=== PATIENT | female | born 1960 | race Caucasian/White ===

== ENCOUNTER 2017-10-18 09:16 | Emergency (ER) | payer OTHER ==
[~2017-10-18] VITALS: Ht 167.6 cm; Wt 89.8 kg
[2017-10-18] MEDS ORDERED: FAMOTIDINE 20 MG/2 ML VIAL IVP ONE (10:15)
[2017-10-18] MEDS ORDERED: ONDANSETRON PF 4 MG/2 ML VIAL. IV ONE (10:15)
[2017-10-18] MEDS ORDERED: KETOROLAC 30 MG/ML INJ. IV ONE (10:15)
[2017-10-18] MEDS ORDERED: IV NORMAL SALINE 1000ML BAG 1,000 ML IV ONE (10:15)
[2017-10-18 10:43] LABS: BASO % 0 % (0-3); EOS % 0 % (0-3); HEMATOCRIT 41.3 % (36.0-47.0); HEMOGLOBIN 14.2 g/dL (12.0-15.5); LYMPH # 0.5 x10^3/uL (1.0-4.8); LYMPH % 3 % (24-48); MEAN CORPUSCULAR HEMOGLOBIN 30 pg (25-35); MEAN CORPUSCULAR HGB CONC 34 g/dL (31-37); MEAN CORPUSCULAR VOLUME 86 fL (79-100); MONO % 6 % (0-9); NEUT % 90 % (31-73); PLATELET COUNT 125 x10^3/uL (140-400); RED CELL DISTRIBUTION WIDTH 13.9 % (11.5-14.5); WHITE BLOOD COUNT 15.9 x10^3/uL (4.0-11.0)
[2017-10-18 10:55] LABS: CALCIUM 9.3 mg/dL (8.5-10.1); GFR 25.8
[2017-10-18 11:00] LABS: BILIRUBIN,URINE NEGATIVE (NEG); GLUCOSE,URINE NEGATIVE (NEG); NITRITE,URINE NEGATIVE (NEG); PROTEIN,URINE >=300 mg/dL (NEG-TRACE); UROBILINOGEN,URINE 0.2 mg/dL (0.2 mg/dL)
[2017-10-18 11:01] LABS: ALBUMIN 3.4 g/dL (3.4-5.0); ALBUMIN/GLOBULIN RATIO 0.9 (1.0-1.7); TOTAL BILIRUBIN 1.1 mg/dL (0.2-1.0); TOTAL PROTEIN 7.4 g/dL (6.4-8.2)
[2017-10-18 11:07] LABS: BACTERIA,URINE MANY /HPF (0-FEW); SQUAMOUS EPITHELIAL CELL,UR FEW /LPF; WBC,URINE TNTC /HPF (0-4)
--- NOTE | 2017-10-18 12:01 | RAD ---
CT abdomen and pelvis without contrast 10/18/2017 Clinical indication: Nausea, vomiting, diarrhea and flank pain. Comparison: None. Technique: Multiple CT images of the abdomen and pelvis were obtained without contrast. PQRS Compliance Statement: One or more of the following individualized dose reduction techniques were utilized for this examination: 1. Automated exposure control 2. Adjustment of the mA and/or kV according to patient size 3. Use of iterative reconstruction technique Findings: Examination is limited due to lack of intravenous and oral contrast. Heart size is normal. Patchy consolidation in the right lung base and trace right pleural effusion. There is severe hepatic steatosis. There is mild splenomegaly. Sludge in a nondilated gallbladder is noted. Unenhanced contours of the adrenal gland and pancreas are grossly unremarkable. There is a 5 mm nonobstructive calculus at the right UVJ seen on series 2/image 208. There is upstream right perinephric and periureteral stranding without hydronephrosis. There is a dense 1.5 cm cortical calcification at the interpolar left kidney which may represent a nonobstructive calculus or a dystrophic calcification. No left hydronephrosis. Abdominal aorta is normal in caliber with moderate aortoiliac calcified atheromatous disease. Small and large bowel loops are normal in caliber without obstruction. No abdominal free fluid. No pneumoperitoneum. No pelvic free fluid. Mildly distended and unopacified urinary bladder is unremarkable apart from the previously noted right UVJ calculus. There are no destructive osseous lesions. Impression: 1. 5 mm nonobstructive calculus at the right UVJ. 2. Right perinephric and periureteral stranding which may be reactive to stone, however ascending infection cannot be excluded. 3. 1.5 cm interpolar left renal dystrophic calcification or nonobstructive calculus. 4. Patchy opacities in the right lung base may represent aspiration, pneumonitis or pneumonia. 5. Trace right pleural effusion.
--- NOTE | 2017-10-18 12:43 | PHYS DOC ---
Past Medical History Past Medical History: Asthma, Hypertension Past Surgical History: Appendectomy, , Other Additional Past Surgical Histo: LEFT KIDNEY, RT KNEE Alcohol Use: None Drug Use: None Adult General Chief Complaint Chief Complaint: NAUSEA/VOMITING/DIARRHA HPI HPI Patient is a 56 year old female with history of asthma, hypertension, kidney stones, who presents today complaining of moderate right flank pain with nausea vomiting and slight diarrhea that has been going on intermittently for 4 days. Patient denies any fever. Denies any hematemesis or melena. She states she had a kidney stone in August and does not smoke if she passed it or not but it was 0.3 mm. Patient denies any hematuria. Denies any urgency frequency or dysuria. She has been taking Flomax, Zofran, and took one hydrocodone. Review of Systems Review of Systems Constitutional: Denies fever or chills [] Eyes: Denies change in visual acuity, redness, or eye pain [] HENT: Denies nasal congestion or sore throat [] Respiratory: Denies cough or shortness of breath [] Cardiovascular: No additional information not addressed in HPI [] GI: Reports nausea vomiting and diarrhea. Denies abdominal pain, : Reports right flank pain. Denies dysuria or hematuria [] Musculoskeletal: Denies back pain or joint pain [] Integument: Denies rash or skin lesions [] Neurologic: Denies headache, focal weakness or sensory changes [] All other systems were reviewed and found to be within normal limits, except as documented in this note. Current Medications Current Medications Current Medications Medications (Trade) Dose Ordered Sig/Grace Start Time Stop Time Status Last Admin Dose Admin Ceftriaxone Sodium 50 ml @ 100 mls/hr 1X ONCE 10/18/17 11:30 10/18/17 11:59 DC 10/18/17 12:34 100 MLS/HR Famotidine (Pepcid Vial) 20 mg 1X ONCE 10/18/17 10:15 10/18/17 10:17 DC 10/18/17 10:41 20 MG Fentanyl Citrate (Fentanyl 2ml Vial) 50 mcg 1X ONCE 10/18/17 12:45 10/18/17 12:46 DC 10/18/17 12:41 50 MCG Ketorolac Tromethamine (Toradol) 30 mg 1X ONCE 10/18/17 10:15 10/18/17 10:17 DC 10/18/17 10:40 30 MG Ondansetron HCl (Zofran) 4 mg 1X ONCE 10/18/17 10:15 10/18/17 10:17 DC 10/18/17 10:38 4 MG Sodium Chloride 1,000 ml @ 1,000 mls/hr 1X ONCE 10/18/17 10:15 10/18/17 11:14 DC 10/18/17 10:37 1,000 MLS/HR Tamsulosin HCl (Flomax) 0.4 mg 1X ONCE 10/18/17 12:45 10/18/17 12:46 DC 10/18/17 12:39 0.4 MG Allergies Allergies Allergies Coded Allergies Type Severity Reaction Last Updated Verified No Known Drug Allergies 10/18/17 No Physical Exam Physical Exam Constitutional: Well developed, well nourished, no acute distress, non-toxic appearance. [] HENT: Normocephalic, atraumatic, bilateral external ears normal, oropharynx moist, no oral exudates, nose normal. [] Eyes: PERRLA, EOMI, conjunctiva normal, no discharge. [] Neck: Normal range of motion, no tenderness, supple, no stridor. [] Cardiovascular:Heart rate regular rhythm, no murmur [] Lungs & Thorax: Bilateral breath sounds clear to auscultation [] Abdomen: Bowel sounds normal, soft, no tenderness, no masses, no pulsatile masses. [] Skin: Warm, dry, no erythema, no rash. [] Back: No tenderness, slight right CVA tenderness. [] Extremities: No tenderness, no cyanosis, no clubbing, ROM intact, no edema. [] Neurologic: Alert and oriented X 3, normal motor function, normal sensory function, no focal deficits noted. [] Psychologic: Affect normal, judgement normal, mood normal. [] Current Patient Data Vital Signs Vital Signs Date Time Temp Pulse Resp B/P (MAP) Pulse Ox O2 Delivery O2 Flow Rate FiO2 10/18/17 12:41 14 95 Room Air 10/18/17 10:10 98.0 112 120/61 (80) 98.0 Lab Values Laboratory Tests Test 10/18/17 10:30 10/18/17 10:50 White Blood Count 15.9 x10^3/uL (4.0-11.0) H Red Blood Count 4.80 x10^6/uL (3.50-5.40) Hemoglobin 14.2 g/dL (12.0-15.5) Hematocrit 41.3 % (36.0-47.0) Mean Corpuscular Volume 86 fL (79-100) Mean Corpuscular Hemoglobin 30 pg (25-35) Mean Corpuscular Hemoglobin Concent 34 g/dL (31-37) Red Cell Distribution Width 13.9 % (11.5-14.5) Platelet Count 125 x10^3/uL (140-400) L Neutrophils (%) (Auto) 90 % (31-73) H Lymphocytes (%) (Auto) 3 % (24-48) L Monocytes (%) (Auto) 6 % (0-9) Eosinophils (%) (Auto) 0 % (0-3) Basophils (%) (Auto) 0 % (0-3) Neutrophils # (Auto) 14.4 x10^3uL (1.8-7.7) H Lymphocytes # (Auto) 0.5 x10^3/uL (1.0-4.8) L Monocytes # (Auto) 0.9 x10^3/uL (0.0-1.1) Eosinophils # (Auto) 0.0 x10^3/uL (0.0-0.7) Basophils # (Auto) 0.0 x10^3/uL (0.0-0.2) Segmented Neutrophils % 74 % (35-66) H Band Neutrophils % 20 % (0-9) H Lymphocytes % 3 % (24-48) L Monocytes % 3 % (0-10) Platelet Estimate Decreased (ADEQUATE) Sodium Level 137 mmol/L (136-145) Potassium Level 4.0 mmol/L (3.5-5.1) Chloride Level 98 mmol/L (98-107) Carbon Dioxide Level 30 mmol/L (21-32) Anion Gap 9 (6-14) Blood Urea Nitrogen 24 mg/dL (7-20) H Creatinine 2.0 mg/dL (0.6-1.0) H Estimated GFR (Cockcroft-Gault) 25.8 BUN/Creatinine Ratio 12 (6-20) Glucose Level 127 mg/dL (70-99) H Calcium Level 9.3 mg/dL (8.5-10.1) Total Bilirubin 1.1 mg/dL (0.2-1.0) H Aspartate Amino Transferase (AST) 23 U/L (15-37) Alanine Aminotransferase (ALT) 38 U/L (14-59) Alkaline Phosphatase 73 U/L (46-116) Total Protein 7.4 g/dL (6.4-8.2) Albumin 3.4 g/dL (3.4-5.0) Albumin/Globulin Ratio 0.9 (1.0-1.7) L Lipase 47 U/L (73-393) L Urine Collection Type Unknown Urine Color Yellow Urine Clarity Cloudy Urine pH 6.0 Urine Specific [place] 1.015 Urine Protein >=300 mg/dL (NEG-TRACE) Urine Glucose (UA) Negative mg/dL (NEG) Urine Ketones (Stick) Negative mg/dL (NEG) Urine Blood Large (NEG) Urine Nitrite Negative (NEG) Urine Bilirubin Negative (NEG) Urine Urobilinogen Dipstick 0.2 mg/dL (0.2 mg/dL) Urine Leukocyte Esterase Moderate (NEG) Urine RBC 11-20 /HPF (0-2) Urine WBC Tntc /HPF (0-4) Urine Squamous Epithelial Cells Few /LPF Urine Bacteria Many /HPF (0-FEW) Urine Mucus Slight /LPF Laboratory Tests 10/18/17 10:30 Laboratory Tests 10/18/17 10:30 EKG EKG [] Radiology/Procedures Radiology/Procedures [] Course & Med Decision Making Course & Med Decision Making Pertinent Labs and Imaging studies reviewed. (See chart for details) This is a 56-year-old female patient presenting to the ED today with a right flank pain nausea vomiting and slight diarrhea for the last 4 days. CBC with a WBC of 15.9 and a left shift. CMP with creatinine of 2.0 and BUN of 24. Urine positive for moderate amount of leukocytes and large amount of blood. CT of the abdomen and pelvic was noted for 5.0 mm nonobstructive calculus at the right UVJ. Patient was also noted for right perinephric take them. Uterus stranding which may be reactive to the stone however they could not exclude infection. Patient's pain is well-controlled in the ED. She has been given IV fluids, Flomax and Rocephin Zofran and pain medications. Spoke to patient about her results. She is states her pain is well controlled and she would like to be discharged. She is tolerating fluids in the ED. She actually wanted lunch. Informed her I will call [facility] and talked with their urologist. I spoke with Dr. Lugo urologist at [facility]. He stated patient can be discharged on antibiotic Cipro Flomax and pain medication and follow-up with his office as long as she does not have a fever. Patient is afebrile. Patient was provided proper return precautions and discharged in stable condition. Dragon Disclaimer Dragon Disclaimer This electronic medical record was generated, in whole or in part, using a voice recognition dictation system. Departure Departure Impression: Primary Impression: Pyelonephritis Additional Impressions: Renal calculus Renal failure Disposition: HOME, SELF-CARE Condition: STABLE Referrals: NON,STAFF (PCP) Urologist Dr. Gallego [phone] Patient Instructions: Kidney Stones, Pyelonephritis, Adult, [id number] Additional Instructions: You were seen with a kidney stone as well as kidney infection. Please push fluids. Take Flomax, hydrocodone, Zofran, Cipro as prescribed. You can also take ibuprofen or naproxen for pain. Follow-up with Dr. Gallego by calling the office on Thursday Urologist Dr. Gallego [phone] Scripts Hydrocodone/Apap 5-325 (NORCO 5-325 TABLET) 1 Each Tablet 1-2 TAB PO Q4-6HRS Y for PAIN, #20 TAB Prov: WILFRID WOO APRN 10/18/17 Ondansetron (ZOFRAN ODT) 4 Mg Tab.rapdis 1 TAB SL Q8HRS, #15 TAB Prov: WILFRID WOO APRN 10/18/17 Tamsulosin Hcl (FLOMAX) 0.4 Mg Cap.er.24h 1 CAP PO DAILY, #7 CAP 11 Refills Prov: WILFRID WOO APRN 10/18/17 Ciprofloxacin Hcl (CIPRO) 500 Mg Tablet 1 TAB PO BID, #14 TAB Prov: WILFRID WOO APRN 10/18/17 Problem Qualifiers Additional Impressions: Renal failure Renal failure chronicity: acute Acute renal failure type: unspecified Qualified Codes: N17.9 - Acute kidney failure, unspecified WILFRID WOO APRN Oct 18, 2017 12:43
[2017-10-18] MEDS ORDERED: fentaNYL PF VIAL 100 MCG/2 ML VIAL IV ONE (12:45)
[2017-10-18] MEDS ORDERED: TAMSULOSIN 0.4 MG CAP.ER.24H. PO ONE (12:45)
[2017-10-18 13:14] LABS: PLT ESTIMATE DECREASED (ADEQUATE)
[2017-10-18] MEDS ORDERED: CIPR500T94 PO (13:32)
[2017-10-18] MEDS ORDERED: ONDA4TAB10 SL (13:32)
[2017-10-18] MEDS ORDERED: TAMS0.4C97 PO (13:32)
[2017-10-18] MEDS ORDERED: HYDR-971 PO (13:32)
[2017-10-18 14:00] VITALS: BP 115/62
== END 2017-10-18 14:31 | disposition home or self-care (01) ==
LOC: ER 09:16
DX: N12 Tubulo-interstitial nephritis, not specified as acute or chronic (principal); N20.0 Calculus of kidney; I12.9 Hypertensive chronic kidney disease with stage 1 through stage 4 chronic kidney disease, or unspecified chronic kidney disease; N18.9 Chronic kidney disease, unspecified; J45.909 Unspecified asthma, uncomplicated; Z90.49 Acquired absence of other specified parts of digestive tract; Z98.890 Other specified postprocedural states
CPT/HCPCS: 36415; 74176; 80053; 81001; 83690; 85007; 85025; 87086; 87186; 96361; 96365; 96375; 99285; J0690; J1885; J2405; J3010; J7030; S0028